=== PATIENT | male | born 1985 | race African-American/Black ===

== ENCOUNTER 2020-03-21 12:13 | Outpatient (REF) | payer SELFPAY | END 2020-03-21 12:14 | disposition home or self-care (01) | LOC: HO.LAB 12:13 | PROVIDERS: Visit Provider Internal Medicine | DX: Z20.828 Contact with and (suspected) exposure to other viral communicable diseases (principal) | CPT/HCPCS: C9803; U0003 ==

== ENCOUNTER 2020-04-10 13:57 | Outpatient (REF) | payer SELFPAY | END 2020-04-10 13:58 | disposition home or self-care (01) | LOC: HO.LAB 13:57 | PROVIDERS: Visit Provider Internal Medicine | DX: Z20.828 Contact with and (suspected) exposure to other viral communicable diseases (principal) | CPT/HCPCS: C9803; U0003 ==